=== PATIENT | male | born 1980 | race Caucasian/White ===

== ENCOUNTER → 2021-02-15 | Outpatient (CLI) | payer OTHER ==
--- NOTE | 2021-02-15 07:43 | RAD ---
CLINICAL HISTORY: Reason: RIGHT SIDED TESTICULAR PAIN / Spl. Instructions: / History: COMPARISON: None available. TECHNIQUE: Ultrasound images of the scrotum was performed with keller-scale and color doppler. FINDINGS: The study somewhat limited due to patient's limited patient tolerance The right testis measures 2.8 x 3.4 x 2.8. The left testis measures 3.1 x 3.0 x 1.8. There is no intratesticular abnormality. Testicular vascularity is somewhat decreased symmetric and within normal limits. This could be technical The right epididymis is enlarged with increased vascularity, the left epididymis is normal in appeara nce . There is no hydrocele or varicocele. IMPRESSION: Enlarged right epididymis with increased vascularity consistent with right epididymitis Electronically signed by: Izabela Stubbs MD (02/15/2021 7:40 AM) [facility]
== END ==
LOC: US 06:09
DX: N50.89 Other specified disorders of the male genital organs (principal)
CPT/HCPCS: 76870